=== PATIENT | female | born 1985 | race Caucasian/White ===

== ENCOUNTER 2023-12-08 10:34 | Day surgery (SDC) | payer OTHER, SELFPAY ==
[2023-11-27 15:21] VITALS: BMI 22.0
[2023-12-08] VITALS (9 sets, daily range): BP systolic 122–141; BP diastolic 79–90; PULSE 58–74; RESP 12–18; TEMP 36.1–37.2; O2SAT 99–100; BMI 22.0
--- NOTE | 2023-12-08 | PATH_ITS ---
[facility] Accession Number: [id number] No. of containers..01 Tissue . 01 Material submitted: . uterus - UTERINE CONTENTS . 01 Diagnosis: UTERINE CONTENTS, CURETTINGS: Fragments of benign endometrial polyps. Associated mixed phase endometrium and stromal changes suggestive of exogenous hormonal/progestin effect. Negative for significant cytologic atypia, hyperplasia, or malignancy. Benign endocervical glandular epithelium is also present. MRV 12/10/20239 Local . 01 Electronically signed: . Hans Mckinney MD, Pathologist NPI- [id number] . 01 Gross description: . The specimen is received in formalin, labeled with the patient's name, , and uterine contents, consists of multiple fragments of pink-loza soft tissue admixed with blood clots aggregating to 10.7 x 3.2 x 0.4 cm. The tissue is filtered into mesh bags and entirely submitted in cassettes A1-A5 ([id number]) /MRV 12/09/20231812 Local . 01 Pathologist provided ICD-10: N93.9, N84.0 . 01 CPT . 187961 Specimen Comment: A courtesy copy of this report has been sent to [facility] Performed at: [address] [facility], [place], [place] [id number] MD Gary Patricia MD Phone: [phone]
--- NOTE | 2023-12-08 11:42 | SUR.OPER ---
Lithotomy on padded OR bed, head on pillow, arms secured on padded arm boards at <90 degrees abduction. Legs secured in padded yellow fins stirrups.
[2023-12-08] MEDS: LACTATED RINGERS 1,000 ML 42 ML IV ×2 (11:43→14:09)
--- NOTE | 2023-12-08 12:08 | PM.PREOP ---
Pre-operative Note Interval Note History & Physical reviewed/Exam performed by Physician: Yes Changes to H&P: No H&P completed within 30 days and has changed as indicated here:: see note from 12/02/23; surgical consent reviewed and signed in preop today
--- NOTE | 2023-12-08 13:25 | P.OP_ITS ---
Operative Date/Time/Diagnoses Date of procedure: 12/08/23 Time of procedure: 12:45 Pre-op diagnosis: Abnormal uterine bleeding Post-op diagnosis: same Procedure & Clinicians Procedure: Diagnostic hysteroscopy Hysteroscopic polypectomy Dilation and curettage Same procedure as scheduled: Yes Indications: 38yo F with AUB-P, counseled and consented for the above procedures. Surgeon: Cecilia Billingsley Click Yes if Unassisted: Yes Anesthesia Type: General Operative Notes Findings: Proliferative endometrium with polypoid appearance to the lateral and posterior uterine quintana. Normal appearing tubal ostia bilaterally. Specimen(s): other (uterine contents) Estimated Blood Loss (mL): 10 Blood products transfused: none Procedure in detail: The risks, benefits, indications and alternatives of the procedure were reviewed with the patient and informed consent was obtained. The pt was taken to the operating room where general anesthesia with LMA was obtained without difficulty. The pt was then placed in the low lithotomy position using gel- padded Kyle stirrups. Sequential compression devices were placed bilaterally for VTE prophylaxis. The pt was then prepped and draped in the sterile fashion. A sterile speculum was placed in the patient?s vagina and the cervix was visualized. A single tooth tenaculum was used to grasp the anterior lip of the cervix. The cervix was then gently, dilated to a size 8 Hegar dilator. The operative hysteroscope was first primed and pressure set. The operative hysteroscope was then advanced through the endocervical canal under direct visualization. The uterus was distended with warm saline, and notable for the above findings. The Myosure Reach was then inserted into the operative hysteroscope. Global endometrial resection was then performed. The operative hysteroscope was then removed under direct visualization. Tissue obtained was sent to pathology for review. The single tooth tenaculum was removed from the anterior lip of the cervix. The tenaculum site was noted to be hemostatic after direct pressure and silver ni trate was applied. All instruments were then removed from the patient?s vagina. Hysteroscopic fluid deficit was 280cc of normal saline. The patient tolerated the procedure well. At the completion of the case the sponge and needle counts were correct x 2. The patient was taken to the PACU in stable condition. Complications: none Post-operative Condition: stable Disposition: PACU Plan for aftercare: Discharge to home once patient is meeting all discharge criteria.
[2023-12-08] MEDS: HYDROMORPHONE 1 MG INJ IV ×2 (13:40→13:50)
[2023-12-08] MEDS: OXYCODONE IR 5 MG TABLET PO (13:47)
[2023-12-08] MEDS: ONDANSETRON 4 MG/2 ML INJ IV (13:47)
[2023-12-08] MEDS: ACETAMINOPHEN 325 MG TABLET 650 MG PO (13:56)
[2023-12-08] MEDS: METOCLOPRAMIDE 10 MG/2 ML INJ IV (13:56)
== END 2023-12-08 14:50 | disposition home or self-care (01) ==
PROVIDERS: PCP Specialist; Referring Provider Student in an Organized Health Care Education/Training Program; Visit Provider Student in an Organized Health Care Education/Training Program
PROC: 0UDB8ZZ Extraction of Endometrium, Via Natural or Artificial Opening Endoscopic (ICD-10-PCS; CPT 58558; principal; 2023-12-08 12:15)
DX: N84.0 Polyp of corpus uteri (principal); N93.9 Abnormal uterine and vaginal bleeding, unspecified
CPT/HCPCS: 58558; 81025; J1100; J1170; J2405; J2704; J2765; J3010